=== PATIENT | male | born 1985 | race Caucasian/White ===

== ENCOUNTER 2018-07-15 08:52 | Day surgery (SDC) | payer OTHER ==
[~2018-07-15] VITALS: Ht 180.3 cm; Wt 156.0 kg
[~2018-07-15 08:52] MED LIST: ERYT500 PO; HYDACE10B PO; HYDACE5 PO; NAPR500 PO; NAPR550 PO
[2018-07-15] MEDS ORDERED: Adipex-P37.5 MG (09:03)
== END 2018-07-15 10:42 | disposition home or self-care (01) ==
LOC: ORSCSDS 08:52
PROVIDERS: Surgery
PROC: 0DBP8ZX Excision of Rectum, Via Natural or Artificial Opening Endoscopic, Diagnostic (ICD-10-PCS; principal; 2018-07-15 10:00)
DX: K62.5 Hemorrhage of anus and rectum (principal); K62.1 Rectal polyp; K64.8 Other hemorrhoids; K64.4 Residual hemorrhoidal skin tags; G47.33 Obstructive sleep apnea (adult) (pediatric); Z87.891 Personal history of nicotine dependence; E66.01 Morbid (severe) obesity due to excess calories; Z68.42 Body mass index [BMI] 45.0-49.9, adult; Z79.899 Other long term (current) drug therapy
CPT/HCPCS: J2250

== ENCOUNTER 2018-08-30 11:09 | Emergency (ER) | payer OTHER ==
[~2018-08-30] VITALS: Ht 180.3 cm; Wt 136.1 kg
[~2018-08-30 11:09] MED LIST changes: +Adipex-P37.5 MG
== END 2018-08-30 12:02 | disposition home or self-care (01) ==
LOC: ER 11:09
DX: S93.402A Sprain of unspecified ligament of left ankle, initial encounter (principal); X50.9XXA Other and unspecified overexertion or strenuous movements or postures, initial encounter; Z91.030 Bee allergy status; Z87.891 Personal history of nicotine dependence
CPT/HCPCS: 73610; 99283-25

== ENCOUNTER 2018-11-26 09:54 | Day surgery (SDC) | payer OTHER ==
[~2018-11-26] VITALS: Ht 180.3 cm; Wt 161.0 kg
[~2018-11-26 09:54] MED LIST changes: +PHENTERMINE PO
== END 2018-11-26 22:49 | disposition home or self-care (01) ==
LOC: ORSCMMR 09:54 → ORD 11:15 → ORSCMMR 22:49
PROVIDERS: Surgery
PROC: 0WJP7ZZ Inspection of Gastrointestinal Tract, Via Natural or Artificial Opening Approach (ICD-10-PCS; principal; 2018-11-26 11:15)
DX: K62.5 Hemorrhage of anus and rectum (principal); K60.2 Anal fissure, unspecified; K64.4 Residual hemorrhoidal skin tags; K64.8 Other hemorrhoids; E66.01 Morbid (severe) obesity due to excess calories; Z68.42 Body mass index [BMI] 45.0-49.9, adult; Z79.899 Other long term (current) drug therapy
CPT/HCPCS: J1100; J1885; J2250; J2405; J3010; J7120

== ENCOUNTER 2019-11-15 23:30 | Emergency (ER) | payer OTHER ==
[~2019-11-15] VITALS: Ht 180.3 cm; Wt 149.7 kg
== END 2019-11-16 04:30 | disposition home or self-care (01) ==
LOC: ER 23:30
DX: S61.213A Laceration without foreign body of left middle finger without damage to nail, initial encounter (principal); Z91.038 Other insect allergy status; Z91.048 Other nonmedicinal substance allergy status; Z87.891 Personal history of nicotine dependence; W26.8XXA Contact with other sharp object(s), not elsewhere classified, initial encounter
CPT/HCPCS: 12002; 73140; 99283-25

== ENCOUNTER 2023-08-04 10:31 | Emergency (ER) | payer OTHER ==
[~2023-08-04] VITALS: Ht 190.5 cm; Wt 147.4 kg
[2023-08-04 10:51] VITALS: BP 142/93
[2023-08-04 11:25] LABS: BASOPHILS ABSOLUTE AUTO 0.06 K/mm3 (0.00-0.23); BASOPHILS PERCENT AUTO 1 % (0-2); EOSINOPHILS ABSOLUTE AUTO 0.24 K/mm3 (0.00-0.68); EOSINOPHILS PERCENT AUTO 3 % (0-6); Hemoglobin 15.8 g/dL (13.5-17.5); IMMATURE GRAN ABSOLUTE AUTO 0.02 K/mm3 (0.00-0.10); IMMATURE GRAN PERCENT AUTO 0 % (0-1); LYMPHOCYTES ABSOLUTE AUTO 2.21 K/mm3 (0.84-5.20); LYMPHOCYTES PERCENT AUTO 27 % (21-46); MONOCYTES ABSOLUTE AUTO 0.89 K/mm3 (0.16-1.47); MONOCYTES PERCENT AUTO 11 % (4-13); Mean Corpuscular HGB 28.9 pg (26.0-34.0); Mean Corpuscular HGB Conc 34.3 g/dL (31.5-36.5); Mean Corpuscular Volume 84 fL (80-100); Mean Platelet Volume 10.5 fL (9.1-12.4); NEUTROPHILS ABSOLUTE AUTO 4.93 K/mm3 (1.96-9.15); NEUTROPHILS PERCENT AUTO 59 % (41-73); Platelet Count 209 K/mm3 (150-400); RDW Coefficient Variation 13.3 % (11.7-14.2); RDW Standard Deviation 40.8 fL (35.1-46.3); Red Blood Cell Count 5.46 M/mm3 (4.30-5.90); White Blood Cell Count 8.35 K/mm3 (4.00-11.30)
[2023-08-04 11:40] LABS: Albumin, Blood 3.8 g/dL (3.4-5.0); Bilirubin, Total 0.9 mg/dL (0.1-1.0); Bun/Creatinine Ratio 19.8 (12.0-20.0); Creatinine, Blood 0.86 mg/dL (0.60-1.20); Globulin, Blood 3.8 g/dL (2.2-4.0); Potassium, Blood 4.2 mmol/L (3.5-5.5); Total Protein, Blood 7.6 g/dL (6.4-8.2)
[2023-08-04] MEDS ORDERED: OMEP20ER PO (12:34)
== END 2023-08-04 13:12 ==
LOC: ER 10:31
PROVIDERS: Emergency Medicine
DX: R10.12 Left upper quadrant pain (principal); Z91.030 Bee allergy status; Z91.048 Other nonmedicinal substance allergy status; Z87.891 Personal history of nicotine dependence
CPT/HCPCS: 74177; 80053; 83690; 85025; 99284-25; Q9967

== ENCOUNTER 2024-08-19 04:15 | Emergency (ER) | payer OTHER ==
[~2024-08-19] VITALS: Ht 180.3 cm; Wt 161.0 kg
[~2024-08-19 04:15] MED LIST changes: +OMEP20ER PO
[2024-08-19] MEDS ORDERED: Lidocaine 4% 1 Patch TOP ONE (05:20)
[2024-08-19] MEDS ORDERED: BENZ100A PO (05:27)
[2024-08-19] MEDS ORDERED: LIDO700A20 TOP (05:27)
[2024-08-19 05:39] VITALS: BP 136/89
== END 2024-08-19 05:41 | disposition home or self-care (01) ==
LOC: ER 04:15
DX: S29.011A Strain of muscle and tendon of front wall of thorax, initial encounter (principal); J98.8 Other specified respiratory disorders; X58.XXXA Exposure to other specified factors, initial encounter; Z68.41 Body mass index [BMI] 40.0-44.9, adult; Z87.891 Personal history of nicotine dependence; Z91.038 Other insect allergy status; Z88.8 Allergy status to other drugs, medicaments and biological substances
CPT/HCPCS: 99283; A9270

== ENCOUNTER 2024-09-06 11:49 | Emergency (ER) | payer OTHER ==
[~2024-09-06] VITALS: Ht 180.3 cm; Wt 161.0 kg
[~2024-09-06 11:49] MED LIST changes: +BENZ100A PO; +LIDO700A20 TOP
[2024-09-06 12:07] VITALS: BP 185/106
[2024-09-06] MEDS ORDERED: Ketorolac Tromethamine 15mg Vial IM ONE (12:50)
[2024-09-06] MEDS ORDERED: LIDO700A20 TOP (13:33)
[2024-09-06] MEDS ORDERED: HYDROCODONE-AC1 EA10 PO (13:33)
== END 2024-09-06 13:57 | disposition home or self-care (01) ==
LOC: ER 11:49
DX: S22.32XA Fracture of one rib, left side, initial encounter for closed fracture (principal); X58.XXXA Exposure to other specified factors, initial encounter; Z87.891 Personal history of nicotine dependence
CPT/HCPCS: 71101; 96372; 99283-25; J1885

== ENCOUNTER 2024-09-08 14:46 | Emergency (ER) | payer OTHER ==
[~2024-09-08] VITALS: Ht 180.3 cm; Wt 161.0 kg
[~2024-09-08 14:46] MED LIST changes: +HYDROCODONE-AC1 EA10 PO
[2024-09-08 16:00] LABS: BASOPHILS ABSOLUTE AUTO 0.08 K/mm3 (0.00-0.23); BASOPHILS PERCENT AUTO 1 % (0-2); EOSINOPHILS ABSOLUTE AUTO 0.66 K/mm3 (0.00-0.68); EOSINOPHILS PERCENT AUTO 8 % (0-6); Hematocrit 45.4 % (37.0-53.0); Hemoglobin 15.4 g/dL (13.5-17.5); IMMATURE GRAN ABSOLUTE AUTO 0.03 K/mm3 (0.00-0.10); IMMATURE GRAN PERCENT AUTO 0 % (0-1); LYMPHOCYTES ABSOLUTE AUTO 1.83 K/mm3 (0.84-5.20); LYMPHOCYTES PERCENT AUTO 23 % (21-46); MONOCYTES ABSOLUTE AUTO 0.76 K/mm3 (0.16-1.47); MONOCYTES PERCENT AUTO 9 % (4-13); Mean Corpuscular HGB 28.8 pg (26.0-34.0); Mean Corpuscular HGB Conc 33.9 g/dL (31.5-36.5); Mean Corpuscular Volume 85 fL (80-100); Mean Platelet Volume 11.4 fL (9.1-12.4); NEUTROPHILS ABSOLUTE AUTO 4.77 K/mm3 (1.96-9.15); NEUTROPHILS PERCENT AUTO 59 % (41-73); Platelet Count 196 K/mm3 (150-400); RDW Standard Deviation 39.9 fL (35.1-46.3); Red Blood Cell Count 5.35 M/mm3 (4.30-5.90); White Blood Cell Count 8.13 K/mm3 (4.00-11.30)
[2024-09-08 16:26] LABS: Albumin, Blood 3.4 g/dL (3.4-5.0); Albumin/Globulin Ratio 0.9 (0.8-1.8); Bilirubin, Total 0.4 mg/dL (0.1-1.0); Bun/Creatinine Ratio 18.5 (12.0-20.0); Calcium, Blood 9.2 mg/dL (8.5-10.1); Creatinine, Blood 0.92 mg/dL (0.60-1.20); Globulin, Blood 3.8 g/dL (2.2-4.0); Total Protein, Blood 7.2 g/dL (6.4-8.2)
[2024-09-08] MEDS ORDERED: Ipratropium Bromide INH 0.02% 0.5 mg/2.5ML Vial INH SCH (20:25)
[2024-09-08] MEDS ORDERED: Albuterol 2.5 MG/3 ML VIAL INH SCH (20:25)
[2024-09-08] MEDS ORDERED: dexAMETHasone 4 MG TAB PO ONE (20:25)
[2024-09-08 22:44] VITALS: BP 125/72
== END 2024-09-08 22:50 | disposition home or self-care (01) ==
LOC: ER 14:46
PROVIDERS: Physician Assistant
DX: R55 Syncope and collapse (principal); J45.909 Unspecified asthma, uncomplicated; Z87.891 Personal history of nicotine dependence; Z91.030 Bee allergy status; Z88.8 Allergy status to other drugs, medicaments and biological substances
CPT/HCPCS: 71046; 80053; 83690; 84484; 85025; 93005; 93010; 94644; 94664; 99284-25

== ENCOUNTER 2025-07-05 11:52 | Emergency (ER) | payer OTHER ==
[~2025-07-05] VITALS: Ht 180.3 cm; Wt 154.2 kg
[2025-07-05 11:57] VITALS: BP 165/100
[2025-07-05] MEDS ORDERED: ULTRA LIDO60 GM TOP (13:53)
[2025-07-05] MEDS ORDERED: Preparation H26 GM TOP (13:53)
== END 2025-07-05 14:00 | disposition home or self-care (01) ==
LOC: ER 11:52
DX: K60.2 Anal fissure, unspecified (principal); K64.4 Residual hemorrhoidal skin tags; Z87.891 Personal history of nicotine dependence
CPT/HCPCS: 99283